=== PATIENT | male | born 1980 | race Hispanic/Latino ===

== ENCOUNTER 2025-07-07 08:47 | Outpatient (CLI) | payer BC ==
[2025-07-07 13:42] LABS: #Basophils 0.07 10x3/uL (0.0-0.2); #Eosinophils 0.20 10x3/uL (0.0-0.7); #Monocytes 0.70 10x3/uL (0.11-0.59); #Neutrophils 3.84 10x3/uL (1.40-6.50); %Basophils 1.0 % (0.0-1.0); %Eosinophils 2.8 % (0.0-10.0); %Lymphocytes 32.5 % (21.0-51.0); %Monocytes 9.8 % (0.0-10.0); %Neutrophils 53.6 % (42.0-75.0); Hematocrit 51.2 % (42.0-52.0); Hemoglobin 16.7 g/dL (14.0-18.0); Mean Corpuscular Hemoglobin 26.8 pg (27.0-31.0); Mean Corpuscular Volume 82.3 fL (78.0-98.0); Platelet Count 285 10x3/uL (130-400); Red Blood Cell (RBC) Count 6.22 mill/uL (4.70-6.10); White Blood Cell (WBC) Count 7.16 10x3/uL (4.8-10.8)
[2025-07-07 14:20] LABS: Anion Gap 17 mmol/L (10-20); BUN (Urea Nitrogen) 15 mg/dL (8.9-20.6); Calc. Creatinine Clearance 0 mL/min (70-130); Calcium 9.2 mg/dL (7.8-10.44); Carbon Dioxide 26 mmol/L (22-29); Chloride 99 mmol/L (98-107); Glucose 84 mg/dL (70-105); Potassium 3.8 mmol/L (3.5-5.1); Sodium 138 mmol/L (136-145)
== END 2025-07-07 08:48 | disposition home or self-care (01) ==
LOC: LABBT 08:47
PROVIDERS: ATTEND Orthopaedic Surgery
DX: Z01.818 Encounter for other preprocedural examination (principal); M67.432 Ganglion, left wrist
CPT/HCPCS: 80048; 85025; 93005; 93010

== ENCOUNTER 2025-07-09 06:52 | Day surgery (SDC) | payer BC ==
[2025-07-07 08:55] VITALS: BMI 40.6
[2025-07-09] MEDS ORDERED: PROPOFOL 20 ML ONE (08:28)
[2025-07-09] MEDS ORDERED: fentaNYL PF 100 MCG/2 ML SYRINGE ONE (08:28)
[2025-07-09] MEDS ORDERED: Ketamine In 0.9 % NaCl 50 MG/5 ML SYRINGE ONE (08:30)
[2025-07-09] MEDS ORDERED: Famotidine/PF 20 mg/2ml Vial ONE (08:34)
[2025-07-09] MEDS ORDERED: Ondansetron PF 4 MG/2 ML Vial ONE (08:34)
[2025-07-09] MEDS ORDERED: CEFAZOLIN 2 GM VIAL ONE (08:48)
[2025-07-09] MEDS ORDERED: Ketorolac Tromethamine 30 MG (1 mL) VIAL ONE (09:07)
== END 2025-07-09 10:15 | disposition home or self-care (01) ==
LOC: SDC 06:52
PROVIDERS: ATTEND Orthopaedic Surgery
PROC: 0LB60ZZ Excision of Left Lower Arm and Wrist Tendon, Open Approach (ICD-10-PCS; principal; 2025-07-09)
DX: M67.432 Ganglion, left wrist (principal); Z88.8 Allergy status to other drugs, medicaments and biological substances
CPT/HCPCS: 88304; J0665; J1308; J1885; J2250; J2405; J2704; J3490